=== PATIENT | male | born 1925 | race African-American/Black ===

== ENCOUNTER 2016-08-21 14:51 | Emergency (ER) | payer MEDICARE ==
[~2016-08-21] VITALS: Ht 177.8 cm; Wt 72.6 kg
[2016-08-21 14:55] VITALS: BP 101/50
[2016-08-21 15:55] LABS: APPEARANCE,URINE CLEAR; BASOPHILS % (AUTO) 0.7 % (0.0-2.0); EOSINOPHILS % (AUTO) 2.1 % (0.0-3.0); KETONES,URINE NEGATIVE (NEGATIVE); LEUKOCYTE ESTERASE ,URINE 1+ (NEGATIVE); LYMPHOCYTES % (AUTO) 20.3 % (20.0-45.0); MEAN CORPUSCULAR HEMOGLOBIN 33.1 PG (27.0-31.0); MEAN CORPUSCULAR HGB CONC 32.7 G/DL (32.0-36.0); MEAN CORPUSCULAR VOLUME 101 FL (80-99); MEAN PLATELET VOLUME 5.7 FL (6.5-10.1); MONOCYTES % (AUTO) 8.9 % (1.0-10.0); NITRITE,URINE NEGATIVE (NEGATIVE); PH,URINE 6 (4.5-8.0); PLATELET COUNT 172 K/UL (150-450); PROTEIN,URINE NEGATIVE (NEGATIVE); RED BLOOD COUNT 2.81 M/UL (4.70-6.10); RED CELL DISTRIBUTION WIDTH 12.3 % (11.6-14.8); UROBILINOGEN,URINE 1 MG/DL (0.0-1.0)
[2016-08-21 16:04] LABS: BACTERIA,URINE FEW /HPF; WBC,URINE 0-2 /HPF (0 - 0)
[2016-08-21 16:08] VITALS: BP 106/41
[2016-08-21 16:15] LABS: TROPONIN I < 0.30 ng/mL (<=0.30)
[2016-08-21 16:18] LABS: ALANINE AMINOTRANSFERASE 10 U/L (3-41); ALBUMIN/GLOBULIN RATIO 1.1 (1.0-2.7); ANION GAP 13 (5-15); ASPARTATE AMINO TRANSFERASE 17 U/L (5-40); CALCIUM 8.7 mg/dL (8.6-10.2); CARBON DIOXIDE 26 mEQ/L (20-30); CHLORIDE 101 mEQ/L (98-107); CREATININE 1.2 mg/dL (0.7-1.2); HEMOLYSIS 3; SODIUM 140 mEQ/L (135-145); TOTAL PROTEIN 5.8 g/dL (6.6-8.7)
--- NOTE | 2016-08-21 16:25 | Diagnostic Imaging Report ---
Indications: Syncope Technique: Spiral acquisitions obtained through the brain. Angled axial and coronal 5 x 5 mm slices were reconstructed. Total dose length product 1351 mGycm. CTDI vol(s) 7 mGy Comparison: Findings: There is minimal age-related enlargement of ventricles and extra-axial CSF spaces. There is minimal periventricular deep white matter chronic ischemic change. No acute hemorrhage or edema. No mass effect or midline shift. Normal nagel-white differentiation. Intact calvarium. 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 Visualized orbits and sinuses are unremarkable. Impression: Chronic and age-related changes as described. Negative for acute intracranial bleed or mass effect. 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
[2016-08-21 16:29] LABS: CKMB < 1.5 ng/mL (< 6.7)
[2016-08-21] MEDS ORDERED: UNOBMED (16:47)
[2016-08-21 17:10] VITALS: BP 111/51
[2016-08-21 17:58] VITALS: BP 112/52
--- NOTE | 2016-08-21 18:17 | Emergency Room Report ---
History of Present Illness General Chief Complaint: Syncope Source: Patient, EMS Present Illness HPI 89-year-old male presents ED for evaluation.Per EMS patient had syncopal episode while at a restaurant today. No reported head injury. Per EMS BP was initially low. Given IV fluids. Patient states he feels okay. Does not remember what happened. Denies headaches, blurry vision. Denies chest pain or shortness of breath. No other aggravating or relieving factors. Denies any other associated symptoms Allergies: Coded Allergies: SULFA (SULFONAMIDE ANTIBIOTICS) (Verified Allergy, Unknown, 08/21/16) VERIFIED BY MEDICAL RECORDS SENT FROM [facility], BY FAX Uncoded Allergies: SULFA (Allergy, Unknown, 08/21/16) Patient History Past Medical History: none Past Surgical History: none Pertinent Family History: none Social History: Denies: alcohol use, drug use, smoking Immunizations: UTD Reviewed Nursing Documentation: PMH: Agreed, PSxH: Agreed Nursing Documentation-PMH Past Medical History: No History, Except For Hx Cardiac Problems: Yes - hyperlipidemia Hx Hypertension: Yes Review of Systems All Other Systems: negative except mentioned in HPI Physical Exam Vital Signs Date Time Temp Pulse Resp B/P Pulse Ox O2 Delivery O2 Flow Rate FiO2 08/21/16 14:55 97.5 70 14 101/50 100 Room Air Sp02 EP Interpretation: reviewed, normal General Appearance: no apparent distress, alert, GCS 15, non-toxic Head: normocephalic, atraumatic Eyes: bilateral eye PERRL, bilateral eye normal inspection ENT: hearing grossly normal, normal pharynx, no angioedema, normal voice Neck: full range of motion, supple/symm/no masses Respiratory: chest non-tender, lungs clear, normal breath sounds, speaking full sentences Cardiovascular #1: regular rate, rhythm, no edema Cardiovascular #2: 2+ carotid (R), 2+ carotid (L), 2+ radial (R), 2+ radial (L) , 2+ dorsalis pedis (R), 2+ dorsalis pedis (L) Gastrointestinal: normal bowel sounds, non tender, soft, non-distended, no guarding, no rebound Rectal: deferred Genitourinary: normal inspection, no CVA tenderness Musculoskeletal: back normal, gait/station normal, normal range of motion, non- tender Neurologic: alert, oriented x3, responsive, motor strength/tone normal, sensory intact, speech normal Psychiatric: judgement/insight normal, memory normal, mood/affect normal, no suicidal/homicidal ideation Reflexes: 3+ bicep (R), 3+ bicep (L), 3+ tricep (R), 3+ tricep (L), 3+ knee (R) , 3+ knee (L) Skin: normal color, no rash, warm/dry, well hydrated Lymphatic: no adenopathy Medical Decision Making Diagnostic Impression: Primary Impression: Syncope Qualified Codes: R55 - Syncope and collapse ER Course Hospital Course 89-year-old M presents ED s/p syncopal episode. Differential diagnoses include: NJ/unstable angina, arrythmia, dehydration, CVA/ TIA Clinical course Patient placed on stretcher. on court recording monitor. After initial history and physical I ordered labs, EKG, chest x-ray, IVFs, CT Brain labs reviewed- no leukocytosis, hemoglobin/hematocrit ok, electrolytes okay, troponins negative EKG- NSR, LBBB Chest x-ray- no acute process CT brain-unremarkable patient initially hypotensive, improved with IV fluids because of insurance patient will be transferred to [facility]. I feel this is a highly complex case requiring extensive working including EKG/Rhythm strip, Xray/CT/US, Blood/urine lab work, repeat exams while in ED, and administration of strong opiates/narcotics for pain control, admission to hospital or close patient follow up. Diagnosis - syncope Transferred in serious condition Labs Test 08/21/16 15:33 White Blood Count 7.0 K/UL (4.8-10.8) Red Blood Count 2.81 M/UL (4.70-6.10) Hemoglobin 9.3 G/DL (14.2-18.0) Hematocrit 28.5 % (42.0-52.0) Mean Corpuscular Volume 101 FL (80-99) Mean Corpuscular Hemoglobin 33.1 PG (27.0-31.0) Mean Corpuscular Hemoglobin Concent 32.7 G/DL (32.0-36.0) Red Cell Distribution Width 12.3 % (11.6-14.8) Platelet Count 172 K/UL (150-450) Mean Platelet Volume 5.7 FL (6.5-10.1) Neutrophils (%) (Auto) 68.0 % (45.0-75.0) Lymphocytes (%) (Auto) 20.3 % (20.0-45.0) Monocytes (%) (Auto) 8.9 % (1.0-10.0) Eosinophils (%) (Auto) 2.1 % (0.0-3.0) Basophils (%) (Auto) 0.7 % (0.0-2.0) Urine Color Yellow Urine Appearance Clear Urine pH 6 (4.5-8.0) Urine Specific [place] 1.015 (1.005-1.035) Urine Protein Negative (NEGATIVE) Urine Glucose (UA) Negative (NEGATIVE) Urine Ketones Negative (NEGATIVE) Urine Occult Blood 1+ (NEGATIVE) Urine Nitrite Negative (NEGATIVE) Urine Bilirubin Negative (NEGATIVE) Urine Urobilinogen 1 MG/DL (0.0-1.0) Urine Leukocyte Esterase 1+ (NEGATIVE) Urine RBC 2-4 /HPF (0 - 0) Urine WBC 0-2 /HPF (0 - 0) Urine Squamous Epithelial Cells None /LPF (NONE/OCC) Urine Bacteria Few /HPF (NONE) Sodium Level 140 mEQ/L (135-145) Potassium Level 4.0 mEQ/L (3.4-4.9) Chloride Level 101 mEQ/L (98-107) Carbon Dioxide Level 26 mEQ/L (20-30) Anion Gap 13 (5-15) Blood Urea Nitrogen 16 mg/dL (7-23) Creatinine 1.2 mg/dL (0.7-1.2) Estimat Glomerular Filtration Rate mL/min (>60) Glucose Level 143 mg/dL (74-106) Calcium Level 8.7 mg/dL (8.6-10.2) Total Bilirubin 0.7 mg/dL (0.0-1.2) Aspartate Amino Transf (AST/SGOT) 17 U/L (5-40) Alanine Aminotransferase (ALT/SGPT) 10 U/L (3-41) Alkaline Phosphatase 65 U/L (40-129) Total Creatine Kinase 71 U/L (38-174) Creatine Kinase MB < 1.5 ng/mL (< 6.7) Creatine Kinase MB Relative Index Troponin I < 0.30 ng/mL (<=0.30) Pro-B-Type Natriuretic Peptide 817 pg/mL (0-450) Total Protein 5.8 g/dL (6.6-8.7) Albumin 3.1 g/dL (3.5-5.2) Globulin 2.7 g/dL Albumin/Globulin Ratio 1.1 (1.0-2.7) EKG Diagnostic Results Rate: normal Rhythm: NSR ST Segments: other - LBBB ASA given to the pt in ED: No Rhythm Strip Diag. Results EP Interpretation: yes Rhythm: NSR, no PVC's, no ectopy Chest X-Ray Diagnostic Results EP Interpretation: No Findings: no consolidation, no effusion, no pneumothorax, no acute cardiopulmonary disease Number of Views: 1 CT/MRI/US Diagnostic Results CT/MRI/US Diagnostic Results : Imaging Test Ordered: CT Head Impression no acute process Last Vital Signs Date Time Temp Pulse Resp B/P Pulse Ox O2 Delivery O2 Flow Rate FiO2 08/21/16 17:10 98.2 67 17 111/51 94 Room Air Status: improved Disposition: XFER [facility] Condition: Serious Referrals: [facility] (PCP) CATHI ROSALES M.D. Aug 21, 2016 18:16
--- NOTE | 2016-08-22 08:34 | Diagnostic Imaging Report ---
Indication: SYNCOPE Technique: One view of the chest Comparison: none Findings: Lungs and pleural spaces are clear. Heart size is normal. Impression: No acute process
--- NOTE | 2016-08-22 15:49 | Cardiology Report ---
APPROVED REPORT EKG Measurement Heart [id number] CO 178P-3 [id number] Normal sinus rhythm Left bundle branch block Abnormal ECG
== END 2016-08-21 18:10 | disposition short-term general hospital (02) ==
LOC: EDBD 14:51 → EMR 15:29
DX: R55 Syncope and collapse (principal); Z88.2 Allergy status to sulfonamides; I10 Essential (primary) hypertension
CPT/HCPCS: 36415; 70450; 71010; 80053; 81003; 82550; 82553; 83880; 84484; 85025; 93005; 96360